=== PATIENT | male | born 1950 | race Caucasian/White ===

== ENCOUNTER 2024-03-17 19:12 | Emergency (ER) | payer MEDICAID ==
[~2024-03-17] VITALS: Ht 182.9 cm; Wt 82.0 kg
[2024-03-17 19:34] VITALS: TEMP 98.2; O2SAT 96
[2024-03-17] MEDS ORDERED: METOCLOPRAMIDE HCL 10MG/2ML VIAL IV ONE (20:00)
[2024-03-17] MEDS ORDERED: KETOROLAC 15MG/ML VIAL IV ONE (20:00)
[2024-03-17 20:01] VITALS: BP 90/54; PULSE 57; RESP 16; O2SAT 96
[2024-03-17 20:06] LABS: BASOPHILS % 1.1 % (0.0-2.0); EOSINOPHILS % 0.7 % (0.0-5.0); HEMATOCRIT. 45.7 % (42.0-52.0); HEMOGLOBIN. 15.6 g/dL (14.0-18.0); LYMPHOCYTES % 48.6 % (20.0-50.0); MEAN CORPUSCULAR HEMOGLOBIN 33.9 pg (28.0-32.0); MEAN CORPUSCULAR HGB CONC 34.3 g/dL (31.0-37.0); MEAN CORPUSCULAR VOLUME 98.9 fL (80.0-94.0); MONOCYTES % 6.9 % (2.0-8.0); NEUTROPHILS % 42.7 % (40.0-76.0); RED BLOOD CELL COUNT 4.62 mill/uL (4.7-6.1); RED CELL DISTRIBUTION WIDTH 14.7 % (11.6-14.6); WHITE BLOOD COUNT 9.8 x1000/uL (4.5-11.0)
[2024-03-17 20:15] LABS: CHLORIDE 105 mEq/L (98-107); POTASSIUM 4.3 mEq/L (3.5-5.1); SODIUM 133 mEq/L (136-145)
[2024-03-17 20:16] LABS: CALCIUM 9.2 mg/dL (8.7-10.4); CARBON DIOXIDE 23 mEq/L (21-32)
[2024-03-17 20:17] LABS: DIFFERENTIAL COMMENT 1
[2024-03-17 20:21] LABS: CREATININE 0.8 mg/dL (0.6-1.3); GLUCOSE 88 mg/dL (70-105); TROPONIN I HIGH SENSITIVITY 6 ng/L (3.0-53); UREA NITROGEN BLOOD 7 mg/dL (9-23)
[2024-03-17 20:29] LABS: MEAN PLATELET VOLUME 7.3 fl (7.4-10.4); PLATELET 253 x1000/uL (130-400)
== END 2024-03-17 20:17 | disposition home or self-care (01) ==
LOC: ER 19:12
DX: T14.90XA Injury, unspecified, initial encounter (principal); I10 Essential (primary) hypertension; Z99.3 Dependence on wheelchair; W19.XXXA Unspecified fall, initial encounter; Y93.89 Activity, other specified; Y92.89 Other specified places as the place of occurrence of the external cause; Y99.8 Other external cause status
CPT/HCPCS: 80048; 83880; 85025; 84484; 36415; 71045; 99284; J1885; J2765; Z7610 ×2